=== PATIENT | female | born 1995 | race Caucasian/White ===

== ENCOUNTER 2019-05-15 12:26 | Emergency (ER) | payer BC ==
[~2019-05-15] VITALS: Ht 167.6 cm; Wt 60.9 kg
[2019-05-15 12:37] VITALS: BP 105/55; TEMP 98.8
[2019-05-15 13:23] LABS: BASO % 0.3 % (0.0-2.0); GRAN # 5.3 (1.4-6.5); GRAN % 83.1 % (42.2-75.2); HEMATOCRIT 39.3 % (37.0-47.0); HEMOGLOBIN 12.8 g/dl (12.5-16.0); LYMPH # 0.8 (1.2-3.4); LYMPH % 11.8 % (20.0-51.0); MEAN CELL VOLUME 92 fl (80.0-100.0); MEAN CORPUSCULAR HEMOGLOBIN 30 pg (27.0-31.0); MEAN CORPUSCULAR HGB CONC 33 g/dl (33.0-37.0); MEAN PLATELET VOLUME 8.6 fl (7.4-10.4); MONO # 0.3 (0.1-0.6); MONO % 4.6 % (1.7-9.3); PLATELET COUNT 303 K/mm3 (130-400); RED BLOOD COUNT 4.27 M/mm3 (4.10-5.30); REDCELL DISTRIBUTION WIDTH-CV 12.5 % (11.5-14.5)
[2019-05-15 13:35] LABS: ALBUMIN 4.1 gm/dL (3.5-5.0); BILIRUBIN,TOTAL 0.5 mg/dL (0.0-1.0); C-REACTIVE PROTEIN 0.6 mg/dL (0.0-0.9); CALCIUM 8.9 mg/dL (8.4-10.2); CREATININE, serum 0.72 (0.52-1.25)
[2019-05-15 13:52] LABS: COLLECTION METHOD CLEAN CATCH
[2019-05-15 14:16] LABS: MUCOUS Present /lpf; PH 9 (5-8); URINE APPEARANCE Clear; URINE BACTERIA Rare /hpf; URINE BILIRUBIN Negative (NEGATIVE); URINE BLOOD Negative (NEGATIVE); URINE COLOR Yellow; URINE GLUCOSE Negative (NEGATIVE); URINE KETONE Negative (NEGATIVE); URINE LEUKOCYTE ESTERASE Negative (NEGATIVE); URINE NITRATE Negative (NEGATIVE); URINE PROTEIN(semi-quant) 1+ (NEGATIVE); URINE UROBILINOGEN Negative (NEGATIVE)
[2019-05-15] MEDS ORDERED: ZOFRAN ODT4 MG PO (15:15)
[2019-05-15] MEDS ORDERED: NORCO 325 MG-51 TAB PO (15:15)
[2019-05-15 15:43] VITALS: PULSE 74
== END 2019-05-15 15:54 | disposition home or self-care (01) ==
LOC: COL.ER 12:26
PROVIDERS: Physician Assistant
DX: R10.13 Epigastric pain (principal); K58.9 Irritable bowel syndrome, unspecified
CPT/HCPCS: J1885; J2405; J3010; J7030; Q9967